=== PATIENT | male | born 1940 | race Caucasian/White ===

== ENCOUNTER 2021-08-31 09:33 | Inpatient (IN) ==
--- NOTE | 2021-08-31 09:48 | Emergency Department Note ---
GI Bleed HPI General Chief complaint: Rectal Bleed Stated complaint: Gi bleed Time Seen by Provider: 08/31/21 09:47 Source: patient and family Mode of arrival: wheelchair Limitations: altered mental status (Dementia) History of Present Illness HPI Narrative: Narrative: 81-year-old male presents emergency department because of generalized weakness. The patient was hospitalized at [facility] on August 11 for a length of stay at 15+ days. 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 10 his dementia and he is on Namenda and donepezil. #11 is DNR #12 his loose stools the patient recovered but because of his Covid status he had to wait till he was Covid negative before he can go to a care facility he goes to the care facility but now today he is not feeling well. He had blood in his stool that was dark-colored. He presents now for further care. Patient was living at home until 2 to 3 weeks ago when he was admitted to [facility]. His states that he had a CVA at that time. states he has had poor appetite for months. Patient is on blood thinner. Patient is unable to provide any history due to his dementia. Related Data Home Medications Medication Instructions Recorded Confirmed cholecalciferol (vitamin D3) 25 1,000 unit PO DAILY 11/10/15 09/01/21 mcg (1,000 unit) capsule coenzyme Q10 50 mg chewable tablet 300 mg PO DAILY 11/10/15 08/31/21 multivitamin 1 each PO DAILY 11/10/15 08/31/21 ropinirole 0.5 mg tablet 0.5 mg PO BID 11/10/15 08/31/21 blood-glucose meter (FreeStyle #1 each 03/16/19 07/16/21 [place] Lite) lutein 10 mg tablet 10 mg PO QDAY 03/16/19 07/16/21 memantine 5 mg tablet 5 mg PO BID 03/16/19 08/31/21 pen needle, diabetic 32 gauge x #10 each 03/16/19 07/16/21 5/32" (BD Ultra-Fine [place] Pen Needle) potassium chloride 10 mEq 10 meq PO QDAY 06/07/19 08/31/21 tablet,extended release (Klor-Con) donepezil 10 mg tablet 10 mg PO BID 02/08/21 08/31/21 acetaminophen 325 mg tablet 650 mg PO Q4H PRN 08/31/21 08/31/21 levothyroxine 50 mcg capsule 50 mcg PO DAILY 08/31/21 08/31/21 (Tirosint) Previous Rx's Medication Instructions Recorded fluticasone propionate 50 2 spray INTRANASAL QDAY #16 g 10/12/18 mcg/actuation nasal spray,suspension (Flonase Allergy Relief) glimepiride 2 mg tablet 2 mg PO DAILY #90 tab 09/13/19 furosemide 40 mg tablet 40 mg PO QAM #90 tab 11/17/19 clopidogrel 75 mg tablet 75 mg PO DAILY #90 tab 01/20/20 allopurinol 300 mg tablet 150 mg PO QDAY #90 tab 03/13/20 Cpap Machine and supplies #1 ea 05/18/20 bupropion HCl 150 mg tablet,12 hr 150 mg PO DAILY #30 each 06/01/20 sustained-release insulin glargine 100 unit/mL (3 50 unit (0.5 mL) SUB-Q .COMPLEX 06/01/20 mL) subcutaneous pen (Lantus #15 ml Solostar U-100 Insulin) blood sugar diagnostic (FreeStyle #100 each 06/29/20 Lite Strips) 4 wheel walker with seat #1 ea 11/22/20 mirabegron 25 mg tablet,extended 25 mg PO QDAY #90 tab 02/08/21 release 24 hr (Myrbetriq) lidocaine 5 % topical patch 1 patch TOPICAL QDAY PRN #15 ea 03/21/21 sertraline 50 mg tablet 50 mg PO QDAY #90 tab 05/21/21 loperamide 2 mg tablet (Imodium 2 mg PO Q4H PRN #30 tab 07/16/21 A-D) pantoprazole 40 mg granules 40 mg PO BID #60 ea 09/01/21 delayed-release for susp in packet sucralfate 100 mg/mL oral 1 gm PO ACHS #90 ml 09/02/21 suspension Allergies Allergy/AdvReac Type Severity Reaction Status Date / Time hydrocodone [HYDROCODONE] AdvReac Mild Constipatio Verified 08/31/21 09:35 n Review of Systems ROS ROS Narrative: Narrative: Limitations: ROS unobtainable due to patients medical condition (Patient has dementia) PFSH Narrative Patient History Narrative: Narrative: Medical/Surgical/Family History All Active Problems (Updated 09/11/21 @ 14:00 by Bhupinder Persaud MD) Acute gastrointestinal bleeding (Acute) Anemia due to blood loss, acute (Acute) Dementia (Acute) Diarrhea (Acute) Senile dementia (Acute) DM (diabetes mellitus), type 2, uncontrolled, periph vascular complic (Chronic) Parkinson's disease (Chronic) HTN (hypertension), benign (Chronic) Encounter for long-term (current) use of insulin (Chronic) Cough (Chronic) Chest tightness (Chronic) Preventative health care (Chronic) Short-term memory loss (Chronic) Seborrheic keratoses (Chronic) Dizziness (Chronic) Hypothyroidism (Chronic) CAD (coronary artery disease) (Chronic) Dislocation of proximal interphalangeal joint of right ring finger (Chronic) Impingement syndrome of right shoulder (Chronic) Hyperlipidemia (Chronic) Greater trochanteric bursitis of left hip (Chronic) Hip pain, left (Chronic) Osteoarthritis of left knee (Chronic) Gout of left knee (Chronic) Contusion of left hand, initial encounter (Chronic) Fatigue (Chronic) GERD (gastroesophageal reflux disease) (Chronic) Dry eye syndrome of both eyes (Chronic) AMI inferior wall (Chronic) Hypercalcemia (Chronic) Sleep apnea (Chronic) Hyperplasia of prostate (Chronic) 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) Depression (Chronic) Right flank pain (Chronic) Need for prophylactic vaccination/inoculation against viral disease (Chronic) Hernia, ventral (Chronic) Erectile dysfunction (Chronic) 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) Rhinitis, allergic (Chronic) Nephrolithiasis (Chronic) Neurogenic bladder (Chronic) Nocturia (Chronic) Adenomatous polyp of colon (Chronic) Colon cancer (Chronic) Macular degeneration (Chronic) Hx of transurethral resection of prostate (Acute) History of colon resection (Acute ~09/2003) Hx of arthroscopy of left knee (Acute) Hx of right coronary artery stent placement (Acute) Hx of hernia repair (Acute) History of partial colectomy (Acute) History of PTCA (Acute) Hx of tonsillectomy (Acute) Hx of cardiac cath (Acute 09/19/15) Syncope (Acute) Lesion of brain (Acute) Medicare annual wellness visit, subsequent (Acute) Tinea unguium (Acute) Fatigue (Acute) Acute right hip pain (Acute) Gait instability (Acute) Falls frequently (Acute) Senile dementia (Acute) Toe pain, left (Acute) Traumatic injury of rib (Acute) Urinary urgency (Acute) Urge incontinence (Acute) Hematuria (Acute) Left renal stone (Acute) Medical History Adenomatous polyp of colon AMI inferior wall CAD (coronary artery disease) Colon cancer Contusion of left hand, initial encounter Depression Dislocation of proximal interphalangeal joint of right ring finger Dizziness DM (diabetes mellitus), type 2, uncontrolled, periph vascular complic Dry eye syndrome of both eyes Encounter for long-term (current) use of insulin Erectile dysfunction Fatigue GERD (gastroesophageal reflux disease) Gout of left knee Greater trochanteric bursitis of left hip Hernia, ventral Hip pain, left HTN (hypertension), benign Hypercalcemia Hyperlipidemia Hyperplasia of prostate UNS W/UR OBST & other LUTS Hypertrophy of prostate with urinary obstruction Hypothyroidism Impingement syndrome of right shoulder Macular degeneration Need for prophylactic vaccination/inoculation against viral disease Neoplasm of uncertain behavior of skin Nephrolithiasis Neurogenic bladder Nocturia Osteoarthritis of left knee Parkinson's disease Preventative health care Rhinitis, allergic Right flank pain Seborrheic keratoses Short-term memory loss Sleep apnea Traumatic injury of rib Tubulovillous adenoma of colon Surgical History History of colon resection (~09/2003) History of partial colectomy History of PTCA Hx of arthroscopy of left knee Hx of cardiac cath (09/19/15) Hx of hernia repair Hx of right coronary artery stent placement Hx of tonsillectomy Hx of transurethral resection of prostate Family History Brother Prostate cancer Social History Smoking Status: Former smoker Alcohol Intake Frequency: does not drink Substance Use: does not use Exam Narrative Narrative: Narrative: General Limitations: altered mental status (Dementia) General appearance: Present alert and in no apparent distress Head Head: Present atraumatic and normocephalic Eye Eye: Absent scleral icterus ENT ENT: Present mucous membranes moist Neck Neck: Present trachea midline Respiratory Respiratory: Present normal lung sounds bilaterally; Absent respiratory distress Cardiovascular Cardiovascular: Present regular rate, normal rhythm and systolic murmur (3/6) Adbominal Abdominal: Present soft; Absent tenderness Rectal Rectal: Present heme (+) stool Extremities Extremities: Present normal inspection Neurological Neurological: Present alert Psychiatric Psychiatric: Present flat affect Skin Skin: Present warm (WNL) and dry Course Vital Signs Vital signs: Vital Signs Temperature 96.5 F L 08/31/21 09:35 Pulse Rate 67 08/31/21 09:35 Respiratory Rate 16 08/31/21 09:35 Blood Pressure 116/55 08/31/21 09:35 Pulse Oximetry (%) 95 08/31/21 09:35 Temperature 98.7 F 09/03/21 13:48 Pulse Rate 76 09/03/21 13:48 Respiratory Rate 16 09/03/21 13:48 Blood Pressure 132/65 09/03/21 13:48 Pulse Oximetry (%) 94 09/03/21 13:48 MDM MDM Narrative Medical decision making narrative: Narrative: Elderly male presents emerge department with dark-colored stool suspected to be blood. Patient with history of prior CVA, Covid positive prior, dementia. Patient on aspirin and Plavix. Differential diagnosis includes upper GI bleed, lower GI bleed, peptic ulcer disease, hemorrhoidal bleed, other Laboratory tests revealed white count of 21,000 with 7.4 hemoglobin and to 96 pl atelet. 5 days ago his hemoglobin was 10.8. In December of last year it was 13.9. Electrolytes were unremarkable. BUN was elevated at 59 with a creatinine of 1.1. This is compatible with a GI bleed. Glucose was elevated at 308 compatible with his diabetes. Stool was guaiac positive. Patient hemo dynamically was stable blood pressure 116/58 with a pulse of 66 and a pulse ox of 95% on room air. Maribel Covid test negative. Patient clearly has a gastrointestinal bleed with a significant decrease in his hemoglobin over the past 5 days. Case was discussed with our hospitalist who agreed to admit the patient and provide further care. Lab Data Result diagrams: 09/03/21 09:54 09/02/21 06:37 Labs: Lab Results 08/31/21 08/31/21 08/31/21 Range/Units 09:51 09:51 12:31 WBC 21.2 H (4.5-11.0) K/mcL RBC 2.46 L (4.63-6.08) M/mcL Hgb 7.4 L (13.7-17.5) g/dL Hct 24.1 L (40.1-51.0) % MCV 98.0 (80.0-100.0) fL MCH 30.1 (26.0-34.0) pg MCHC 30.7 L (31.0-36.0) g/dL RDW 17.0 H (11.5-14.5) % Plt Count 296 (140-440) K/mcL MPV 11.0 H (7.4-10.4) fL Neut % (Auto) 83.7 H (38.0-78.0) % Lymph % (Auto) 10.3 L (15.5-49.0) % [place] % (Auto) 5.6 (1.0-12.0) % Eos % (Auto) 0.1 (0.0-7.0) % Baso % (Auto) 0.3 (0.0-2.0) % Lymph # (Auto) 2.19 (1.50-4.80) K/mcL [place] # (Auto) 1.19 H (0.10-0.90) K/mcL Eos # (Auto) 0.02 (0.00-0.70) K/mcL Baso # (Auto) 0.07 (0.00-0.30) K/mcL Absolute Neutrophils 17.71 H (1.80-8.00) K/mcL VBG Lactic Acid 2.3 H (0.5-2.0) mmol/L Sodium 143 (133-145) mmol/L Potassium 4.3 (3.3-5.1) mmol/L Chloride 108 (96-108) mmol/L Carbon Dioxide 21 L (22-30) mmol/L Anion Gap 14.0 (8.0-16.0) BUN 59 H (8-23) mg/dL Creatinine 1.1 (0.7-1.2) mg/dL GFR Calculation 62 Glucose 308 H (70-105) mg/dL Calcium 8.4 L (8.6-10.4) mg/dL Total Bilirubin 0.4 (0.1-1.0) mg/dL AST 17 (<40) U/L ALT 29 (<40) U/L Alkaline Phosphatase 65 (39-117) U/L Total Protein 5.6 L (5.9-8.4) gm/dL Albumin 2.9 L (3.2-5.2) gm/dL Globulin 2.7 (2.2-3.7) gm/dL Albumin/Globulin Ratio 1.1 (1.0-2.3) ED POC Tests ED POC Tests: [place] - SARS Antigen Negative Discharge Plan Patient/Caregiver Discharge Instructions Pt seen by [employer]ESSIONAL [employer]/PA only: No Clinical Impression: Acute gastrointestinal bleeding, Anemia due to blood loss, acute, Dementia Activity: increase activity as tolerated Patient Disposition: Xfer As Inpt ([facility]) Condition: Fair Discharge Date/Time: 08/31/21 14:59
[2021-08-31] MEDS ORDERED: 0.9 % SODIUM CHLORIDE 1,000 ML IV ONE (10:40)
[2021-08-31 10:56] LABS: Basophils # (Auto) 0.07 K/mcL (0.00-0.30); Basophils % (Auto) 0.3 % (0.0-2.0); Eosinophils # (Auto) 0.02 K/mcL (0.00-0.70); Eosinophils % (Auto) 0.1 % (0.0-7.0); Hematocrit 24.1 % (40.1-51.0); Hemoglobin 7.4 g/dL (13.7-17.5); Lymphocytes # (Auto) 2.19 K/mcL (1.50-4.80); Lymphocytes % (Auto) 10.3 % (15.5-49.0); Mean Corpuscular HGB Conc 30.7 g/dL (31.0-36.0); Monocytes # (Auto) 1.19 K/mcL (0.10-0.90); Monocytes % (Auto) 5.6 % (1.0-12.0); Neutrophils % (Auto) 83.7 % (38.0-78.0); Platelet Count 296 K/mcL (140-440); RBC 2.46 M/mcL (4.63-6.08); WBC 21.2 K/mcL (4.5-11.0)
[2021-08-31 11:26] LABS: ALT/SGPT 29 U/L (<40); AST/SGOT 17 U/L (<40); Albumin 2.9 gm/dL (3.2-5.2); Albumin/Globulin Ratio 1.1 (1.0-2.3); Alkaline Phosphatase 65 U/L (39-117); Bilirubin,Total 0.4 mg/dL (0.1-1.0); Blood Urea Nitrogen 59 mg/dL (8-23); Calcium 8.4 mg/dL (8.6-10.4); Carbon Dioxide 21 mmol/L (22-30); Chloride 108 mmol/L (96-108); Globulin 2.7 gm/dL (2.2-3.7); Glomerular Filtration Rate 62; Glucose 308 mg/dL (70-105)
[2021-08-31] MEDS ORDERED: PANTOPRAZOLE 40 MG VIAL IV ONE (13:11)
--- NOTE | 2021-08-31 13:11 | XRay Report ---
CLINICAL INFORMATION: Elevated white blood cell count COMPARISON: 03/21/2019 TECHNIQUE: Portable FINDINGS: Mild cardiomegaly is unchanged. Mediastinum and pulmonary vessels are normal. Moderate patchy infiltrate is developed in the left mid and lower lung. Modest volume loss noted featuring leftward cardiomediastinal silhouette shifting and slightly retracted the diaphragm. This may indicate a component of atelectasis. Small infiltrate is also developed in the right lower lung. IMPRESSION: Moderate patchy infiltrate involving the left mid and lower lung with small infiltrate developing in the right lower lung. Interpreted and Authenticated by: Luis M Lucas 08/31/21
[2021-08-31] MEDS ORDERED: FUROSEMIDE 20 MG/2 ML VIAL IV ONE (13:30)
[2021-08-31] MEDS ORDERED: ACETAMINOPHEN 325 MG TABLET PO PRN (13:33)
[2021-08-31] MEDS ORDERED: METOPROLOL TARTRATE 5 MG/5 ML VIAL IV PRN (13:33)
[2021-08-31] MEDS ORDERED: ONDANSETRON 4 MG/2 ML VIAL IV PRN (13:33)
[2021-08-31] MEDS ORDERED: IPRATROPIUM/ALBUTEROL 3 ML AMPUL.NEB NEB PRN (13:33)
[2021-08-31] MEDS ORDERED: POTASSIUM CHLORIDE 40 MEQ in DEXTROSE 5% IN WATER 500 ML IV PRN (13:33)
[2021-08-31] MEDS ORDERED: POLYETHYLENE GLYCOL 3350 17 GM PACKET PO PRN (13:33)
[2021-08-31] MEDS ORDERED: MAGNESIUM SULFATE 2 GM/50 ML BAG IV PRN (13:33)
[2021-08-31] MEDS ORDERED: POTASSIUM CHLORIDE 20 MEQ TABLET PO PRN ×2 (13:33)
--- NOTE | 2021-08-31 13:33 | Internal Med History&Physical ---
HPI History of Present Illness Patient information: Note initiated : 08/31/21 at 1:23 pm Service Date, if different from initiated Date: [] Patient: Abdoulaye Meyers a 81 y/o M admitted on for Gi bleed. Chief Complaint: [] History of present illness: Mr. Meyers is a 81 year old M [facility] guaiac positive and pale. Patient was for left parietal stroke on 08/11. He was also found to have pneumonia and was treated for both bacterial and Covid pneumonia. He was finally discharged on the due to isolation precautions from [facility] to shelter facility. And then today brought in because of weakness and his thought he was Pale and bleeding. Had another dark tarry stool in the ED. Hemoglobin 7.5 was 10.7 5 days ago. Will order blood transfusion and given the recent stroke will give 2 units to help with perfusion. Patient was on aspirin when he was admitted to [place] and Plavix was added given the stroke. Review of Systems: Pertinent positives as above. Denies /fever/chills/nausea/vomiting/chest or abdominal pain/cough/dyspnea. Remaining 10 point review of system reviewed negative PFSH PFSH All Active Problems Diarrhea (Acute) Senile dementia (Acute) DM (diabetes mellitus), type 2, uncontrolled, periph vascular complic (Chronic) Parkinson's disease (Chronic) HTN (hypertension), benign (Chronic) Encounter for long-term (current) use of insulin (Chronic) Cough (Chronic) Chest tightness (Chronic) Preventative health care (Chronic) Short-term memory loss (Chronic) Seborrheic keratoses (Chronic) Dizziness (Chronic) Hypothyroidism (Chronic) CAD (coronary artery disease) (Chronic) Dislocation of proximal interphalangeal joint of right ring finger (Chronic) Impingement syndrome of right shoulder (Chronic) Hyperlipidemia (Chronic) Greater trochanteric bursitis of left hip (Chronic) Hip pain, left (Chronic) Osteoarthritis of left knee (Chronic) Gout of left knee (Chronic) Contusion of left hand, initial encounter (Chronic) Fatigue (Chronic) GERD (gastroesophageal reflux disease) (Chronic) Dry eye syndrome of both eyes (Chronic) AMI inferior wall (Chronic) Hypercalcemia (Chronic) Sleep apnea (Chronic) Hyperplasia of prostate (Chronic) 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) Depression (Chronic) Right flank pain (Chronic) Need for prophylactic vaccination/inoculation against viral disease (Chronic) Hernia, ventral (Chronic) Erectile dysfunction (Chronic) 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) Rhinitis, allergic (Chronic) Nephrolithiasis (Chronic) Neurogenic bladder (Chronic) Nocturia (Chronic) Adenomatous polyp of colon (Chronic) Colon cancer (Chronic) Macular degeneration (Chronic) Hx of transurethral resection of prostate (Acute) History of colon resection (Acute ~09/2003) Hx of arthroscopy of left knee (Acute) Hx of right coronary artery stent placement (Acute) Hx of hernia repair (Acute) History of partial colectomy (Acute) History of PTCA (Acute) Hx of tonsillectomy (Acute) Hx of cardiac cath (Acute 09/19/15) Syncope (Acute) Lesion of brain (Acute) Medicare annual wellness visit, subsequent (Acute) Tinea unguium (Acute) Fatigue (Acute) Acute right hip pain (Acute) Gait instability (Acute) Falls frequently (Acute) Senile dementia (Acute) Toe pain, left (Acute) Traumatic injury of rib (Acute) Urinary urgency (Acute) Urge incontinence (Acute) Hematuria (Acute) Left renal stone (Acute) Medical History Adenomatous polyp of colon AMI inferior wall CAD (coronary artery disease) Colon cancer Contusion of left hand, initial encounter Depression Dislocation of proximal interphalangeal joint of right ring finger Dizziness DM (diabetes mellitus), type 2, uncontrolled, periph vascular complic Dry eye syndrome of both eyes Encounter for long-term (current) use of insulin Erectile dysfunction Fatigue GERD (gastroesophageal reflux disease) Gout of left knee Greater trochanteric bursitis of left hip Hernia, ventral Hip pain, left HTN (hypertension), benign Hypercalcemia Hyperlipidemia Hyperplasia of prostate UNS W/UR OBST & other LUTS Hypertrophy of prostate with urinary obstruction Hypothyroidism Impingement syndrome of right shoulder Macular degeneration Need for prophylactic vaccination/inoculation against viral disease Neoplasm of uncertain behavior of skin Nephrolithiasis Neurogenic bladder Nocturia Osteoarthritis of left knee Parkinson's disease Preventative health care Rhinitis, allergic Right flank pain Seborrheic keratoses Short-term memory loss Sleep apnea Traumatic injury of rib Tubulovillous adenoma of colon Surgical History History of colon resection (~09/2003) History of partial colectomy History of PTCA Hx of arthroscopy of left knee Hx of cardiac cath (09/19/15) Hx of hernia repair Hx of right coronary artery stent placement Hx of tonsillectomy Hx of transurethral resection of prostate Family History Brother Prostate cancer Social History household members: spouse marital status: occupational status: retired smoking status: Never smoker alcohol intake frequency: does not drink substance use type: does not use MEDS/ALLERGIES Home Medications and Allergies Home Medications Medication Instructions Recorded Confirmed Type aspirin 81 mg chewable tablet 81 mg PO DAILY 11/10/15 07/16/21 History cholecalciferol (vitamin D3) 25 1,000 unit PO DAILY 11/10/15 07/16/21 History mcg (1,000 unit) capsule coenzyme Q10 50 mg chewable tablet 50 mg PO DAILY 11/10/15 07/16/21 History multivitamin 1 each PO DAILY 11/10/15 07/16/21 History pantoprazole 40 mg granules 40 mg PT DAILY 11/10/15 07/16/21 History delayed-release for susp in packet ropinirole 0.5 mg tablet 0.5 mg PO DAILY 11/10/15 07/16/21 History fluticasone propionate 50 2 spray INTRANASAL QDAY #16 g 10/12/18 07/16/21 Rx mcg/actuation nasal spray,suspension (Flonase Allergy Relief) blood-glucose meter (FreeStyle #1 each 03/16/19 07/16/21 History [place] Lite) lutein 10 mg tablet 10 mg PO QDAY 03/16/19 07/16/21 History memantine 5 mg tablet 5 mg PO BID 03/16/19 07/16/21 History pen needle, diabetic 32 gauge x #10 each 03/16/19 07/16/21 History 5/32" (BD Ultra-Fine Glenny Pen Needle) potassium chloride 10 mEq 10 meq PO QDAY 06/07/19 07/16/21 History tablet,extended release (Klor-Con) glimepiride 2 mg tablet 2 mg PO DAILY #90 tab 09/13/19 07/16/21 Rx furosemide 40 mg tablet 40 mg PO QAM #90 tab 11/17/19 07/16/21 Rx clopidogrel 75 mg tablet 75 mg PO DAILY #90 tab 01/20/20 07/16/21 Rx allopurinol 300 mg tablet 150 mg PO QDAY #90 tab 03/13/20 07/16/21 Rx Cpap Machine and supplies #1 ea 05/18/20 07/16/21 Rx bupropion HCl 150 mg tablet,12 hr 150 mg PO DAILY #30 each 06/01/20 07/16/21 Rx sustained-release insulin glargine 100 unit/mL (3 50 unit (0.5 mL) SUB-Q .COMPLEX 06/01/20 07/16/21 Rx mL) subcutaneous pen (Lantus #15 ml Solostar U-100 Insulin) blood sugar diagnostic (FreeStyle #100 each 06/29/20 07/16/21 Rx Lite Strips) metoprolol tartrate 25 mg tablet 25 mg PO DAILY #90 tab 10/10/20 07/16/21 Rx 4 wheel walker with seat #1 ea 11/22/20 07/16/21 Rx levothyroxine 50 mcg capsule See Rx Instructions .ROUTE 12/12/20 07/16/21 Rx (Tirosint) .COMPLEX #90 cap donepezil 10 mg tablet 10 mg PO QDAY 02/08/21 07/16/21 History mirabegron 25 mg tablet,extended 25 mg PO QDAY #90 tab 02/08/21 07/16/21 Rx release 24 hr (Myrbetriq) lidocaine 5 % topical patch 1 patch TOPICAL QDAY PRN #15 ea 03/21/21 07/16/21 Rx sertraline 50 mg tablet 50 mg PO QDAY #90 tab 05/21/21 07/16/21 Rx loperamide 2 mg tablet (Imodium 2 mg PO Q4H PRN #30 tab 07/16/21 07/16/21 Rx A-D) Allergies Allergy/AdvReac Type Severity Reaction Status Date / Time hydrocodone [HYDROCODONE] AdvReac Mild Constipatio Verified 08/31/21 09:35 n EXAM Constitutional Vitals: Temp Pulse Resp BP Pulse Ox 96.5 F L 58 L 16 114/72 100 08/31/21 09:35 08/31/21 12:35 08/31/21 09:35 08/31/21 11:40 08/31/21 12:35 Exam: General: Alert, Awake, No acute Distress Eyes/N/T: EOMI, PERRL, Head/Neck: neck supple, normocephalic atraumatic CV: RRR, 3/6 SM, normal s1/s2 Pulm: Clear b/l, no wheezing/rhonchi/rales Abd: soft, nontender, +BS x4 Ext: no clubbing/cyanosis/edema Neuro: Alert, no focal deficits, moves all extremities, CN 2-12 grossly intact, symmetrical strength b/l upper/lower, sensations intact b/l upper/lower Skin: warm/dry, pale DATA Data Completed and Pending Labs: Labs from last 24 hours 08/31/21 08/31/21 08/31/21 12:31 09:51 09:51 WBC 21.2 H RBC 2.46 L Hgb 7.4 L Hct 24.1 L MCV 98.0 MCH 30.1 MCHC 30.7 L RDW 17.0 H Plt Count 296 MPV 11.0 H Neut % (Auto) 83.7 H Lymph % (Auto) 10.3 L [place] % (Auto) 5.6 Eos % (Auto) 0.1 Baso % (Auto) 0.3 Lymph # (Auto) 2.19 [place] # (Auto) 1.19 H Eos # (Auto) 0.02 Baso # (Auto) 0.07 Absolute Neutrophils 17.71 H VBG Lactic Acid Pending Sodium 143 Potassium 4.3 Chloride 108 Carbon Dioxide 21 L Anion Gap 14.0 BUN 59 H Creatinine 1.1 GFR Calculation 62 Glucose 308 H Calcium 8.4 L Total Bilirubin 0.4 AST 17 ALT 29 Alkaline Phosphatase 65 Total Protein 5.6 L Albumin 2.9 L Globulin 2.7 Albumin/Globulin Ratio 1.1 A/P Narrative A/P Narrative: A: *GI bleed, appears to be upper: *Acute blood loss anemia: *Recent left parietal CVA on 08/11: was already on ASA, Plavix started at [facility] *Recent pneumonia/covid: *Dementia: *Depression/anxiety: *DM w/neuropathy: *CAD w/stent distant past: *Hypothyroidism: *GERD: P: -Dr. Queen for endoscopy -Blood transfusion, monitor H&H -Protonix drip -asa/plavix held, will possibly switch to monotherapy with plavix when appropriate to restart antiplatelet -Continue remaing home medications -IS - -PT/OT -Home medication reconciliation -ppx: SCD Time Spent With Patient Time: Total time spent is greater than 50% in coordination of care (as documented) at patient's floor/unit and/or counseling patient:
[2021-08-31] MEDS: PANTOPRAZOLE 80 MG in 0.9 % SODIUM CHLORIDE 100 ML IV SCH (13:41)
[2021-08-31] MEDS ORDERED: KETAMINE 50 MG/ML ML IV PRN (16:14)
[2021-08-31] MEDS ORDERED: MIDAZOLAM 2 MG/2 ML VIAL IV SCH (16:15)
[2021-08-31] MEDS ORDERED: PROPOFOL 200 MG/20 ML VIAL IV SCH (16:15)
[2021-08-31] MEDS ORDERED: MIDAZOLAM 2 MG/2 ML VIAL ONE (16:20)
[2021-08-31] MEDS ORDERED: PROPOFOL 200 MG/20 ML VIAL IV ONE (16:20)
[2021-08-31] MEDS: 0.9 % SODIUM CHLORIDE 10 ML SYRINGE IV SCH (16:36)
[2021-08-31] MEDS: 0.9 % SODIUM CHLORIDE 250 ML IV SCH ×2 (16:37→22:30)
[2021-09-01] MEDS: PANTOPRAZOLE 80 MG in 0.9 % SODIUM CHLORIDE 100 ML IV SCH ×2 (01:37→11:32)
[2021-09-01] MEDS: 0.9 % SODIUM CHLORIDE 10 ML SYRINGE IV SCH ×4 (01:38→20:07)
[2021-09-01 06:54] LABS: Basophils # (Auto) 0.03 K/mcL (0.00-0.30); Basophils % (Auto) 0.2 % (0.0-2.0); Eosinophils # (Auto) 0.15 K/mcL (0.00-0.70); Eosinophils % (Auto) 1.2 % (0.0-7.0); Hematocrit 27.2 % (40.1-51.0); Hemoglobin 8.5 g/dL (13.7-17.5); Lymphocytes # (Auto) 1.77 K/mcL (1.50-4.80); Lymphocytes % (Auto) 14.6 % (15.5-49.0); Mean Cell Volume 95.8 fL (80.0-100.0); Mean Corpuscular HGB Conc 31.3 g/dL (31.0-36.0); Mean Platelet Volume 10.4 fL (7.4-10.4); Monocytes # (Auto) 0.74 K/mcL (0.10-0.90); Monocytes % (Auto) 6.1 % (1.0-12.0); Neutrophils % (Auto) 77.9 % (38.0-78.0); Platelet Count 146 K/mcL (140-440); RBC 2.84 M/mcL (4.63-6.08); Red Cell Distribution Width 16.5 % (11.5-14.5); WBC 12.1 K/mcL (4.5-11.0)
[2021-09-01 07:05] LABS: ALT/SGPT 19 U/L (<40); AST/SGOT 12 U/L (<40); Albumin 2.4 gm/dL (3.2-5.2); Alkaline Phosphatase 57 U/L (39-117); Bilirubin,Direct < 0.2 mg/dL (0-0.3); Bilirubin,Total 0.5 mg/dL (0.1-1.0); Blood Urea Nitrogen 43 mg/dL (8-23); Calcium 7.7 mg/dL (8.6-10.4); Carbon Dioxide 21 mmol/L (22-30); Chloride 118 mmol/L (96-108); Globulin 2.4 gm/dL (2.2-3.7); Glomerular Filtration Rate 88; Glucose 168 mg/dL (70-105); Lactate Dehydrogenase 215 U/L (135-225); Phosphorous 2.3 mg/dL (2.5-4.5); Triglycerides 154 mg/dL (<150); Uric Acid 3.4 mg/dL (2.5-8.0)
[2021-09-01] MEDS ORDERED: DEXTROSE 31 GM ORAL.SUSP PO PRN (07:40)
[2021-09-01] MEDS ORDERED: DEXTROSE 50% 50 ML VIAL IV PRN (07:40)
--- NOTE | 2021-09-01 07:41 | Internal Med Progress Note ---
SUBJECTIVE Subjective Patient information: Note initiated : 09/01/21 at 7:34 am Service Date, if different from initiated Date: [] Patient: Abdoulaye Meyers a 81 y/o M admitted on 08/31/21 for Gi bleed. Chief Complaint: [] Interval history: History of present illness: Mr. Meyers is a 81 year old M Patient presents the ED from [facility] facility for black tarry stools guaiac positive and pale. Patient was for left parietal stroke on 08/11. He was also found to have pneumonia and was treated for both bacterial and Covid pneumonia. He was finally discharged on the due to isolation precautions from [facility] to halfway facility. And then today brought in because of weakness and his thought he was Pale and bleeding. Had another dark tarry stool in the ED. Hemoglobin 7.5 was 10.7 5 days ago. Will order blood transfusion and given the recent stroke will give 2 units to help with perfusion. Patient was on aspirin when he was admitted to [place] and Plavix was added given the stroke. Discussed case with Dr. Queen after EGD findings of multiple ulcers. We will send out fasting gastrin for Chuckie Juárez syndrome work-up. Wait 2-weeks for antiplatelet restart. Will only restart plavix. 09/01 No reported bleeding overnight. No new complaints. Electrolyte imbalance on chemistry. Hemoglobin stable but not as high as would expect after 2 units of blood. Review of Systems: rehan headache/fever/chills/nausea/vomiting/chest or abdominal pain/cough/dyspnea/diarrhea. Otherwise see above. Constitutional Vitals: Vital Signs Temp Pulse Resp BP Pulse Ox 97.4 F 65 20 123/60 95 09/01/21 07:21 09/01/21 07:21 09/01/21 07:21 09/01/21 07:21 09/01/21 07:21 Period Temp Pulse Resp BP Sys/Kerr Pulse Ox Last 24 Hr 96.5 F-98.2 F 52-67 16-20 71-137/38-72 91-100 Intake and Output 08/31/21 09/01/21 09/01/21 21:59 05:59 13:59 Intake Total 5 831 Output Total 150 400 Balance -145 431 Weight 79.379 kg Intake & Output: Intake & Output 08/31/21 09/01/21 09/01/21 21:59 05:59 13:59 Intake Total 5 831 Output Total 150 400 Balance -145 431 Weight 79.379 kg Intake: IV 5 81 Protonix 80 mg In Sodium 5 81 Chloride 0.9% 100 ml @ 8 MG/HR 10 mls/hr IV Q10H EMELINA Rx#: [id number] Oral 0 Blood Product 750 Output: Urine Catheter Amount 150 400 Other: Urine Appearance Clear Clear [place] Clear Urine Color Dark Yellow Dark Yellow [place] Bright Yellow Urine Odor Normal # Unmeasured Emesis 1 Exam: General: Alert, Awake, No acute Distress Eyes/N/T: EOMI, Head/Neck: neck supple, CV: RRR, 3/6 SM, Pulm: Clear b/l, no wheezing/rhonchi/rales Abd: soft, nontender, +BS x4 Ext: no clubbing/cyanosis/edema Neuro: Alert, no focal deficits, moves all extremities, Skin: warm/dry, pale OBJ DATA Labs CBC & Chem 7: 09/01/21 05:39 09/01/21 05:39 Labs: Abnormal Lab Results 09/01/21 09/01/21 08/31/21 05:39 05:39 12:31 WBC 12.1 H RBC 2.84 L Hgb 8.5 L Hct 27.2 L MCHC RDW 16.5 H MPV Neut % (Auto) Lymph % (Auto) 14.6 L [place] # (Auto) Absolute Neutrophils 9.44 H VBG Lactic Acid 2.3 H Sodium 146 H Chloride 118 H Carbon Dioxide 21 L Anion Gap 7.0 L BUN 43 H Glucose 168 H Calcium 7.7 L Phosphorus 2.3 L Total Protein 4.8 L Albumin 2.4 L Triglycerides 154 H 08/31/21 08/31/21 09:51 09:51 WBC 21.2 H RBC 2.46 L Hgb 7.4 L Hct 24.1 L MCHC 30.7 L RDW 17.0 H MPV 11.0 H Neut % (Auto) 83.7 H Lymph % (Auto) 10.3 L [place] # (Auto) 1.19 H Absolute Neutrophils 17.71 H VBG Lactic Acid Sodium Chloride Carbon Dioxide 21 L Anion Gap BUN 59 H Glucose 308 H Calcium 8.4 L Phosphorus Total Protein 5.6 L Albumin 2.9 L Triglycerides Meds: Medications Acetaminophen (Acetaminophen 325 Mg Tablet) 650 mg PO Q6HP PRN; Protocol PRN Reason: Per Pain Protocol/Fever > 101 Albuterol/Ipratropium (Ipratropium/Albuterol 3 Ml Ampul.Neb) 3 ml NEB Q4HP PRN PRN Reason: Shortness Of Breath Pantoprazole Sodium 80 mg/ (Sodium Chloride) 100 mls @ 10 mls/hr IV Q10H COUNTS INCLUDE 234 BEDS AT THE [facility] Last Admin: 09/01/21 01:37 Dose: 8 mg/hr, 10 mls/hr Documented by: Potassium Chloride 40 meq/ (Dextrose) 520 mls @ 130 mls/hr IV UD PRN PRN Reason: Potassium < 3 Magnesium Sulfate (Magnesium Sulfate) 2 gm in 50 mls @ 50 mls/hr IV UD PRN PRN Reason: Magnesium </= 1.6 Metoprolol Tartrate (Metoprolol Tartrate 5 Mg/5 Ml Vial) 5 mg IV Q2HP PRN PRN Reason: Tachyarrhythmias HR>110 Ondansetron HCl (Ondansetron 4 Mg/2 Ml Vial) 4 mg IV Q4HP PRN PRN Reason: Nausea And Vomiting Polyethylene Glycol (Polyethylene Glycol 3350 17 Gm Packet) 17 gm PO DAILYP PRN PRN Reason: Constipation Potassium Chloride (Potassium Chloride 20 Meq Tablet) 40 meq PO UD PRN PRN Reason: Potssium is 3-3.5 Potassium Chloride (Potassium Chloride 20 Meq Tablet) 40 meq PO UD PRN PRN Reason: Potassium < 3 Sodium Chloride (0.9 % Sodium Chloride 10 Ml Syringe) 10 ml IV Q8 COUNTS INCLUDE 234 BEDS AT THE [facility] Last Admin: 09/01/21 04:25 Dose: Not Given Documented by: A/P Narrative A/P Narrative: A: *GI bleed, appears to be upper: 2/2 severe PUD *Acute blood loss anemia: -s/p 2PRBC(08/31) *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 Queen s/p endoscopy -Follow-up electrolytes -Blood transfusion prn, monitor H&H -Protonix drip for several days then bid -clear liquid diet, advance as tolerated -asa/plavix held, will only restart Plavix and wait 2-weeks per Dr. Suárez -Continue other home medications -IS -PT/OT -ppx: SCD Time Spent With Patient Time: Total time spent is greater than 50% in coordination of care (as documented) at patient's floor/unit and/or counseling patient: QUALITY VTE Deep Vein Thrombosis/Pulmonary Embolism Present on Admission: No
[2021-09-01] MEDS ORDERED: DEXTROSE 5% IN WATER 500 ML IV SCH (07:45)
[2021-09-01] MEDS ORDERED: LOPERAMIDE 2 MG CAPSULE PO PRN (07:56)
[2021-09-01] MEDS ORDERED: METOPROLOL SUCCINATE 25 MG TAB.XL.24H PO SCH (09:00)
[2021-09-01] MEDS: LEVOTHYROXINE 50 MCG TABLET PO SCH (09:47)
[2021-09-01] MEDS: SERTRALINE 50 MG TABLET PO SCH (09:54)
[2021-09-01] MEDS: DONEPEZIL 10 MG TABLET PO SCH ×2 (09:54→20:06)
[2021-09-01] MEDS: rOPINIRole 0.25 MG TABLET PO SCH ×2 (09:54→20:06)
--- NOTE | 2021-09-01 10:04 | Discharge Summary ---
Discharge Provider Provider Patient information: Note initiated : 09/01/21 at 10:03 am Service Date, if different from initiated Date: [] Patient: Abdoulaye Meyers 81 y/o M admitted on 08/31/21 for Gi bleed. Chief Complaint: [] Date of admission: 08/31/21 14:58 Discharge date: 09/02/21 Primary care physician: Antonio Martin MD Consults: 08/31/21 Consult to Physician [CONS] Stat Comment: Consulting Provider: Germain Sanchez Reason For Exam: Physician to Consult Consult to Physician [CONS] Stat Comment: Consulting Provider: Vivek Suárez Reason For Exam: Physician to Consult Discharge Meds Discharge Medications Home Medications cholecalciferol (vitamin D3) 25 mcg (1,000 unit) capsule 1,000 unit PO DAILY 11/10/15 [History Confirmed 09/01/21 Last Taken 04/05/19] coenzyme Q10 50 mg chewable tablet 300 mg PO DAILY 11/10/15 [History Confirmed 08/31/21 Last Taken 04/05/19] multivitamin 1 each PO DAILY 11/10/15 [History Confirmed 08/31/21 Last Taken 04/05/19] ropinirole 0.5 mg tablet 0.5 mg PO BID 11/10/15 [History Confirmed 08/31/21 Last Taken 04/05/19] fluticasone propionate 50 mcg/actuation nasal spray,suspension (Flonase Allergy Relief) 2 spray INTRANASAL QDAY #16 g 10/12/18 [Rx Confirmed 07/16/21 Last Taken 04/05/19] blood-glucose meter (FreeStyle [place] Lite) #1 each 03/16/19 [History Confirmed 07/16/21 Last Taken 04/05/19] lutein 10 mg tablet 10 mg PO QDAY 03/16/19 [History Confirmed 07/16/21 Last Taken 04/05/19] memantine 5 mg tablet 5 mg PO BID 03/16/19 [History Confirmed 08/31/21 Last Taken 04/05/19] pen needle, diabetic 32 gauge x 5/32" (BD Ultra-Fine Glenny Pen Needle) #10 each 03/16/19 [History Confirmed 07/16/21 Last Taken 04/05/19] potassium chloride 10 mEq tablet,extended release (Klor-Con) 10 meq PO QDAY 06/07/19 [History Confirmed 08/31/21 Last Taken Unknown] glimepiride 2 mg tablet 2 mg PO DAILY #90 tab 09/13/19 [Rx Confirmed 07/16/21 Last Taken Unknown] furosemide 40 mg tablet 40 mg PO QAM #90 tab 11/17/19 [Rx Confirmed 07/16/21 Last Taken Unknown] clopidogrel 75 mg tablet 75 mg PO DAILY #90 tab 01/20/20 [Rx Confirmed 08/31/21 Last Taken Unknown] allopurinol 300 mg tablet 150 mg PO QDAY #90 tab 03/13/20 [Rx Confirmed 08/31/21 Last Taken Unknown] Cpap Machine and supplies #1 ea 05/18/20 [Rx Confirmed 07/16/21 Last Taken Unknown] bupropion HCl 150 mg tablet,12 hr sustained-release 150 mg PO DAILY #30 each 06/01/20 [Rx Confirmed 09/01/21 Last Taken Unknown] insulin glargine 100 unit/mL (3 mL) subcutaneous pen (Lantus Solostar U-100 Insulin) 50 unit (0.5 mL) SUB-Q .COMPLEX #15 ml 06/01/20 [Rx Confirmed 07/16/21 Last Taken Unknown] blood sugar diagnostic (FreeStyle Lite Strips) #100 each 06/29/20 [Rx Confirmed 07/16/21 Last Taken Unknown] metoprolol tartrate 25 mg tablet 25 mg PO DAILY #90 tab 10/10/20 [Rx Confirmed 08/31/21 Last Taken Unknown] 4 wheel walker with seat #1 ea 11/22/20 [Rx Confirmed 07/16/21 Last Taken Unknown] donepezil 10 mg tablet 10 mg PO BID 02/08/21 [History Confirmed 08/31/21 Last Taken Unknown] mirabegron 25 mg tablet,extended release 24 hr (Myrbetriq) 25 mg PO QDAY #90 tab 02/08/21 [Rx Confirmed 07/16/21 Last Taken Unknown] lidocaine 5 % topical patch 1 patch TOPICAL QDAY PRN #15 ea 03/21/21 [Rx Confirmed 07/16/21 Last Taken Unknown] sertraline 50 mg tablet 50 mg PO QDAY #90 tab 05/21/21 [Rx Confirmed 08/31/21 Last Taken Unknown] loperamide 2 mg tablet (Imodium A-D) 2 mg PO Q4H PRN #30 tab 07/16/21 [Rx Confirmed 08/31/21 Last Taken Unknown] acetaminophen 325 mg tablet 650 mg PO Q4H PRN 08/31/21 [History Confirmed 08/31/21 Last Taken Unknown] levothyroxine 50 mcg capsule (Tirosint) 50 mcg PO DAILY 08/31/21 [History Confirmed 08/31/21 Last Taken Unknown] pantoprazole 40 mg granules delayed-release for susp in packet 40 mg PO BID #60 ea 09/01/21 [Rx Last Taken Unknown] sucralfate 100 mg/mL oral suspension 1 gm PO ACHS #90 ml 09/02/21 [Rx Last Taken Unknown] COURSE Hospital Course Hospital course: History of present illness: Mr. Meyers is a 81 year old M Patient presents the ED from [facility] for black tarry stools guaiac positive and pale. Patient was for left parietal stroke on 08/11. He was also found to have pneumonia and was treated for both bacterial and Covid pneumonia. He was finally discharged on the due to isolation precautions from [facility] to assisted facility. And then today brought in because of weakness and his thought he was Pale and bleeding. Had another dark tarry stool in the ED. Hemoglobin 7.5 was 10.7 5 days ago. Will order blood transfusion and given the recent stroke will give 2 units to help with perfusion. Patient was on aspirin when he was admitted to [place] and Plavix was added given the stroke. Discussed case with Dr. Queen after EGD findings of multiple ulcers. We will send out fasting gastrin for Chuckie Juárez syndrome work-up. Wait 2-weeks for antiplatelet restart. Will only restart plavix. 2 No reported bleeding overnight. No new complaints. Electrolyte imbalance on chemistry. Hemoglobin stable but not as high as would expect after 2 units of blood. 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 Suárez -gastrin lab pending Discharge diagnosis: Peptic ulcer disease with GI bleed blood loss anemia Secondary discharge diagnosis: Recent stroke recent pneumonia with Covid dementia depression anxiety diabetes CAD obstructive sleep apnea hypothyroidism GERD Time Spent with Patient Time attestation: Total time spent providing and/or coordinating discharge services: Time spent: Greater than 30 minutes EXAM Constitutional Vitals: Temp Pulse Resp BP Pulse Ox 97.4 F 65 20 123/60 95 09/01/21 07:21 09/01/21 07:21 09/01/21 07:21 09/01/21 07:21 09/01/21 07:21 Discharge Data Data Completed and Pending Labs on day of discharge: Labs from last 24 hours 09/01/21 09/01/21 09/01/21 05:39 05:39 05:39 WBC 12.1 H RBC 2.84 L Hgb 8.5 L Hct 27.2 L MCV 95.8 MCH 29.9 MCHC 31.3 RDW 16.5 H Plt Count 146 MPV 10.4 Neut % (Auto) 77.9 Lymph % (Auto) 14.6 L [place] % (Auto) 6.1 Eos % (Auto) 1.2 Baso % (Auto) 0.2 Lymph # (Auto) 1.77 [place] # (Auto) 0.74 Eos # (Auto) 0.15 Baso # (Auto) 0.03 Absolute Neutrophils 9.44 H VBG Lactic Acid Sodium 146 H Potassium 4.2 Chloride 118 H Carbon Dioxide 21 L Anion Gap 7.0 L BUN 43 H Creatinine 0.7 GFR Calculation 88 Glucose 168 H Uric Acid 3.4 Calcium 7.7 L Phosphorus 2.3 L Magnesium 2.1 Total Bilirubin 0.5 Direct Bilirubin < 0.2 GGT 9 AST 12 ALT 19 Alkaline Phosphatase 57 Lactate Dehydrogenase 215 Total Protein 4.8 L Albumin 2.4 L Globulin 2.4 Albumin/Globulin Ratio 1.0 Triglycerides 154 H Gastrin Pending 08/31/21 08/31/21 08/31/21 12:31 09:51 09:51 WBC 21.2 H RBC 2.46 L Hgb 7.4 L Hct 24.1 L MCV 98.0 MCH 30.1 MCHC 30.7 L RDW 17.0 H Plt Count 296 MPV 11.0 H Neut % (Auto) 83.7 H Lymph % (Auto) 10.3 L [place] % (Auto) 5.6 Eos % (Auto) 0.1 Baso % (Auto) 0.3 Lymph # (Auto) 2.19 [place] # (Auto) 1.19 H Eos # (Auto) 0.02 Baso # (Auto) 0.07 Absolute Neutrophils 17.71 H VBG Lactic Acid 2.3 H Sodium 143 Potassium 4.3 Chloride 108 Carbon Dioxide 21 L Anion Gap 14.0 BUN 59 H Creatinine 1.1 GFR Calculation 62 Glucose 308 H Uric Acid Calcium 8.4 L Phosphorus Magnesium Total Bilirubin 0.4 Direct Bilirubin GGT AST 17 ALT 29 Alkaline Phosphatase 65 Lactate Dehydrogenase Total Protein 5.6 L Albumin 2.9 L Globulin 2.7 Albumin/Globulin Ratio 1.1 Triglycerides Gastrin Discharge Plan Patient/Caregiver Discharge Instructions Activity: increase activity as tolerated Diet: Consistent Carbohydrate Activity Restrictions/Additional Instructions: Wait 10 days to restart Plavix. Prescriptions: New sucralfate 100 mg/mL Suspension 1 gm PO ACHS Qty: 90 0RF Continued potassium chloride [Klor-Con 10] 10 mEq tablet extended release 10 meq PO QDAY 0RF (DME) FreeStyle Lite Strips Strip See Dose Instructions .ROUTE .MEDSUPPLY Qty: 100 11RF Rx Instructions: test blood sugar three times daily glimepiride 2 mg tablet 2 mg PO DAILY Qty: 90 4RF furosemide 40 mg tablet 40 mg PO QAM Qty: 90 4RF clopidogrel 75 mg tablet 75 mg PO DAILY Qty: 90 4RF allopurinol 300 mg tablet 150 mg PO QDAY Qty: 90 4RF (DME) Cpap Machine and supplies Qty: 1 0RF Rx Instructions: As directed bupropion HCl 150 mg tablet sustained-release 12 hr 150 mg PO DAILY Qty: 30 0RF Lantus Solostar U-100 Insulin 100 unit/mL (3 mL) insulin pen 50 unit SUB-Q .COMPLEX Qty: 15 4RF Hold Instructions: Doctor's Order Rx Instructions: 50 units subcut ; sertraline 50 mg tablet 50 mg PO QDAY Qty: 90 1RF lutein 10 mg tablet 10 mg PO QDAY 0RF memantine 5 mg tablet 5 mg PO BID 0RF (DME) blood-glucose meter [FreeStyle [place] Lite] kit See Dose Instructions .ROUTE .MEDSUPPLY Qty: 1 0RF Rx Instructions: As directed (DME) pen needle, diabetic [BD Ultra-Fine Glenny Pen Needle] 32 gauge x 5/32" needle See Dose Instructions .ROUTE .MEDSUPPLY Qty: 10 0RF Rx Instructions: As directed fluticasone propionate [Flonase Allergy Relief] 50 mcg/actuation spray,suspension 2 spray INTRANASAL QDAY Qty: 16 0RF Rx Instructions: administer into each nostril lidocaine 5 % adhesive patch,medicated 1 patch topical QDAY PRN (Reason: pain) Qty: 15 0RF Rx Instructions: Apply to most painful area for up to 12 hrs/day. loperamide [Imodium A-D] 2 mg tablet 2 mg PO Q4H PRN (Reason: loose stool) Qty: 30 0RF Rx Instructions: administer after each loose stool until symptoms controlled; do not exceed 8 mg per 24 hrs metoprolol tartrate 25 mg tablet 25 mg PO DAILY Qty: 90 4RF (DME) 4 wheel walker with seat See Rx Instructions .Route .MEDSUPPLY Qty: 1 0RF Rx Instructions: As directed donepezil 10 mg tablet 10 mg PO BID 0RF Myrbetriq 25 mg tablet extended release 24 hr 25 mg PO QDAY Qty: 90 4RF multivitamin 1 EACH tablet 1 each PO DAILY 0RF ropinirole 0.5 MG tablet 0.5 mg PO BID 0RF cholecalciferol (vitamin D3) 1,000 UNIT capsule 1,000 unit PO DAILY 0RF coenzyme Q10 50 MG tablet,chewable 300 mg PO DAILY 0RF levothyroxine [Tirosint] 50 mcg capsule 50 mcg PO DAILY 0RF Rx Instructions: TAKE 1 CAPSULE DAILY acetaminophen 325 mg Tablet 650 mg PO Q4H PRN (Reason: pain/fever) 0RF nitrofurantoin macrocrystal 100 mg capsule 100 mg PO ONCE Qty: 1 0RF Changed pantoprazole 40 MG packet 40 mg PO BID Qty: 60 0RF Rx Instructions: Take twice daily for 30 days then once daily thereafter. Discontinued aspirin 81 MG tablet,chewable 81 mg PO DAILY 0RF Follow Up Plan Follow up with: Antonio Martin MD [Primary Care Provider] - Vivek Suárez MD [Physician] - Patient Disposition: Home Health Service Prognosis: Undetermined Overall status at discharge: patient is progressing back to baseline Discharge Orders: Discharge Order (Routine); Ordered 09/02/21 Ordered By: Germain Sanchez [facility] VTE Deep Vein Thrombosis/Pulmonary Embolism Present on Admission: No
[2021-09-01] MEDS: MEMANTINE 10 MG TABLET PO SCH ×2 (10:33→20:06)
[2021-09-01] MEDS: ALLOPURINOL 300 MG TABLET PO SCH (10:34)
[2021-09-01] MEDS: INSULIN LISPRO 1 UNIT/0.01 ML UNIT SQ SCH ×3 (11:40→20:48)
[2021-09-01 17:07] LABS: POC Blood Urea Nitrogen 33 mg/dL (6-20); POC CO2 24 mmol/L (22-30); POC Calcium, Ionized 1.25 mmEq/L (1.16-1.32); POC Chloride 113 mEq/L (96-108); POC Creatinine 0.9 mg/dL (0.6-1.2); POC Glucose, Random 169 mg/dL (70-105); POC Hematocrit 25 % (41-55); POC Potassium 3.7 mEql/L (3.3-5.1); POC Sodium 148 mEq/L (133-145)
[2021-09-01] MEDS: DEXTROSE 5% IN WATER 1,000 ML IV SCH (18:00)
[2021-09-01 18:01] LABS: Hematocrit 26.4 % (40.1-51.0); Hemoglobin 8.4 g/dL (13.7-17.5)
[2021-09-01] MEDS: PANTOPRAZOLE 40 MG PACKET PO SCH (20:05)
[2021-09-01 23:17] LABS: POC Blood Urea Nitrogen 25 mg/dL (6-20); POC CO2 22 mmol/L (22-30); POC Calcium, Ionized 1.18 mmEq/L (1.16-1.32); POC Chloride 110 mEq/L (96-108); POC Creatinine 0.7 mg/dL (0.6-1.2); POC Glucose, Random 189 mg/dL (70-105); POC Hematocrit 21 % (41-55); POC Potassium 3.5 mEql/L (3.3-5.1); POC Sodium 143 mEq/L (133-145)
[2021-09-01] MEDS ORDERED: SUCRALFATE 1 GM/10 ML ORAL.SUSP PO ONE (23:33)
[2021-09-02] MEDS ORDERED: 0.9 % SODIUM CHLORIDE 250 ML IV SCH (01:15)
[2021-09-02] MEDS: DEXTROSE 5% IN WATER 1,000 ML IV SCH ×2 (02:10→11:44)
[2021-09-02] MEDS: 0.9 % SODIUM CHLORIDE 10 ML SYRINGE IV SCH ×3 (06:01→21:10)
[2021-09-02 06:47] LABS: POC Calcium, Ionized 1.22 mmEq/L (1.16-1.32); POC Creatinine 0.6 mg/dL (0.6-1.2); POC Potassium 3.5 mEql/L (3.3-5.1)
[2021-09-02] MEDS: LEVOTHYROXINE 50 MCG TABLET PO SCH (07:31)
[2021-09-02] MEDS: PANTOPRAZOLE 40 MG PACKET PO SCH ×2 (07:31→17:14)
[2021-09-02] MEDS: INSULIN LISPRO 1 UNIT/0.01 ML UNIT SQ SCH ×4 (07:32→21:06)
--- NOTE | 2021-09-02 07:52 | Internal Med Progress Note ---
SUBJECTIVE Subjective Patient information: Note initiated : 09/02/21 at 7:47 am Service Date, if different from initiated Date: [] Patient: Abdoulaye Meyers a 81 y/o M admitted on 08/31/21 for Gi bleed. Chief Complaint: [] Interval history: History of present illness: Mr. Meyers is a 81 year old M Patient presents the ED from [facility] facility for black tarry stools guaiac positive and pale. Patient was for left parietal stroke on 08/11. He was also found to have pneumonia and was treated for both bacterial and Covid pneumonia. He was finally discharged on the due to isolation precautions from [facility] to [facility]. And then today brought in because of weakness and his thought he was Pale and bleeding. Had another dark tarry stool in the ED. Hemoglobin 7.5 was 10.7 5 days ago. Will order blood transfusion and given the recent stroke will give 2 units to help with perfusion. Patient was on aspirin when he was admitted to [place] and Plavix was added given the stroke. Discussed case with Dr. Queen after EGD findings of multiple ulcers. We will send out fasting gastrin for Chuckie Juárez syndrome work-up. Wait 2-weeks for antiplatelet restart. Will only restart plavix. 09/01 No reported bleeding overnight. No new complaints. Electrolyte imbalance on chemistry. Hemoglobin stable but not as high as would expect after 2 units of blood. 2/ Stable hemoglobin, seems to be doing well. Constitutional Vitals: Vital Signs Temp Pulse Resp BP Pulse Ox 97.5 F 55 L 18 106/56 92 09/02/21 07:16 09/02/21 07:16 09/02/21 07:16 09/02/21 07:16 09/02/21 07:16 Period Temp Pulse Resp BP Sys/Kerr Pulse Ox Last 24 Hr 97.3 F-97.8 F 44-72 - 106-173/53-75 92-96 Intake and Output 09/01/21 09/02/21 09/02/21 21:59 05:59 13:59 Intake Total 100 2450 Balance 100 2450 Weight 80.15 kg Intake & Output: Intake & Output 09/01/21 09/02/21 09/02/21 21:59 05:59 13:59 Intake Total 100 2450 Balance 100 2450 Weight 80.15 kg Intake: IV 100 1000 Dextrose 5% in Water 1,000 ml @ 1000 125 mls/hr IV .Q8H EMELINA Rx#: [id number] Protonix 80 mg In Sodium 100 Chloride 0.9% 100 ml @ 8 MG/HR 10 mls/hr IV Q10H EMELINA Rx#: [id number] Oral 0 800 Blood Product 650 Other: Meal Lunch Percent of Meal Consumed 0% Urine Appearance Clear [place] Clear Urine Color Bright Yellow [place] Bright Yellow Stool Size Small Stool Color Black Stool Consistency Loose # of times incontinent of 1 Bowels Exam: General: Alert, Awake, No acute Distress Eyes/N/T: EOMI, Head/Neck: neck supple, CV: RRR, 3/6 SM, Pulm: Clear b/l, no wheezing/rhonchi/rales Abd: soft, nontender, +BS x4 Ext: no clubbing/cyanosis/edema Neuro: Alert, no focal deficits, moves all extremities, Skin: warm/dry, pale OBJ DATA Labs CBC & Chem 7: 09/02/21 06:36 09/02/21 06:37 Labs: Abnormal Lab Results 09/02/21 09/01/21 09/01/21 06:37 23:04 23:04 WBC RBC Hgb 7.7 L Hct POC Hct 29 L 21 L* MCHC RDW MPV Neut % (Auto) Lymph % (Auto) [place] # (Auto) Absolute Neutrophils VBG Lactic Acid POC Sodium Sodium POC Chloride 110 H Chloride Carbon Dioxide Anion Gap POC BUN 23 H 25 H BUN Glucose POC Glucose 135 H 189 H Calcium Phosphorus Total Protein Albumin Triglycerides 09/01/21 09/01/21 09/01/21 16:53 16:53 05:39 WBC RBC Hgb 8.4 L Hct 26.4 L POC Hct 25 L MCHC RDW MPV Neut % (Auto) Lymph % (Auto) [place] # (Auto) Absolute Neutrophils VBG Lactic Acid POC Sodium 148 H Sodium 146 H POC Chloride 113 H Chloride 118 H Carbon Dioxide 21 L Anion Gap 7.0 L POC BUN 33 H BUN 43 H Glucose 168 H POC Glucose 169 H Calcium 7.7 L Phosphorus 2.3 L Total Protein 4.8 L Albumin 2.4 L Triglycerides 154 H 09/01/21 08/31/21 08/31/21 05:39 12:31 09:51 WBC 12.1 H RBC 2.84 L Hgb 8.5 L Hct 27.2 L POC Hct MCHC RDW 16.5 H MPV Neut % (Auto) Lymph % (Auto) 14.6 L [place] # (Auto) Absolute Neutrophils 9.44 H VBG Lactic Acid 2.3 H POC Sodium Sodium POC Chloride Chloride Carbon Dioxide 21 L Anion Gap POC BUN BUN 59 H Glucose 308 H POC Glucose Calcium 8.4 L Phosphorus Total Protein 5.6 L Albumin 2.9 L Triglycerides 08/31/21 09:51 WBC 21.2 H RBC 2.46 L Hgb 7.4 L Hct 24.1 L POC Hct MCHC 30.7 L RDW 17.0 H MPV 11.0 H Neut % (Auto) 83.7 H Lymph % (Auto) 10.3 L [place] # (Auto) 1.19 H Absolute Neutrophils 17.71 H VBG Lactic Acid POC Sodium Sodium POC Chloride Chloride Carbon Dioxide Anion Gap POC BUN BUN Glucose POC Glucose Calcium Phosphorus Total Protein Albumin Triglycerides Meds: Medications Acetaminophen (Acetaminophen 325 Mg Tablet) 650 mg PO Q6HP PRN; Protocol PRN Reason: Per Pain Protocol/Fever > 101 Albuterol/Ipratropium (Ipratropium/Albuterol 3 Ml Ampul.Neb) 3 ml NEB Q4HP PRN PRN Reason: Shortness Of Breath Allopurinol (Allopurinol 300 Mg Tablet) 150 mg PO QDAY [facility] Last Admin: 09/01/21 10:34 Dose: 150 mg Documented by: Dextrose (Dextrose 50% 50 Ml Vial) 0 ml IV UD PRN PRN Reason: Hypoglycemia Diagnostic Test (Pha) (Accu-Chek 1 Each Strip) 1 each FS ACHS [facility] Last Admin: 09/02/21 07:32 Dose: 1 each Documented by: Donepezil HCl (Donepezil 10 Mg Tablet) 10 mg PO BID [facility] Last Admin: 09/01/21 20:06 Dose: 10 mg Documented by: Glucose (Dextrose 31 Gm Oral.Susp) 15 gm PO PRN PRN PRN Reason: Hypoglycemia Potassium Chloride 40 meq/ (Dextrose) 520 mls @ 130 mls/hr IV UD PRN PRN Reason: Potassium < 3 Magnesium Sulfate (Magnesium Sulfate) 2 gm in 50 mls @ 50 mls/hr IV UD PRN PRN Reason: Magnesium </= 1.6 Dextrose (Dextrose 5% In Water) 1,000 mls @ 125 mls/hr IV .Q8H [facility] Last Admin: 09/02/21 02:10 Dose: Not Given Documented by: Sodium Chloride (Sodium Chloride 0.9%) 250 mls @ 20 mls/hr IV .[id number] [facility] Stop: 09/02/21 13:44 Last Admin: 09/02/21 02:04 Dose: 20 mls/hr Documented by: Insulin Human Lispro (Insulin Lispro 1 Unit/0.01 Ml Unit) 0 unit SQ ACHS [facility]; Protocol Last Admin: 09/02/21 07:32 Dose: Not Given Documented by: Levothyroxine Sodium (Levothyroxine 50 Mcg Tablet) 50 mcg PO QAMAC [facility] Last Admin: 09/02/21 07:31 Dose: 50 mcg Documented by: Loperamide HCl (Loperamide 2 Mg Capsule) 2 mg PO Q4HP PRN PRN Reason: Diarrhea Memantine (Memantine 10 Mg Tablet) 5 mg PO BID [facility] Last Admin: 09/01/21 20:06 Dose: 5 mg Documented by: Metoprolol Succinate (Metoprolol Succinate 25 Mg Tab.Xl.24h) 6.25 mg PO DAILY [facility] Last Admin: 09/01/21 09:54 Dose: 6.25 mg Documented by: Metoprolol Tartrate (Metoprolol Tartrate 5 Mg/5 Ml Vial) 5 mg IV Q2HP PRN PRN Reason: Tachyarrhythmias HR>110 Ondansetron HCl (Ondansetron 4 Mg/2 Ml Vial) 4 mg IV Q4HP PRN PRN Reason: Nausea And Vomiting Pantoprazole Sodium (Pantoprazole 40 Mg Packet) 40 mg PO BIDAC [facility] Last Admin: 09/02/21 07:31 Dose: 40 mg Documented by: Polyethylene Glycol (Polyethylene Glycol 3350 17 Gm Packet) 17 gm PO DAILYP PRN PRN Reason: Constipation Potassium Chloride (Potassium Chloride 20 Meq Tablet) 40 meq PO UD PRN PRN Reason: Potssium is 3-3.5 Potassium Chloride (Potassium Chloride 20 Meq Tablet) 40 meq PO UD PRN PRN Reason: Potassium < 3 Ropinirole HCl (Ropinirole 0.25 Mg Tablet) 0.5 mg PO BID [facility] Last Admin: 09/01/21 20:06 Dose: 0.5 mg Documented by: Sertraline HCl (Sertraline 50 Mg Tablet) 50 mg PO QDAY [facility] Last Admin: 09/01/21 09:54 Dose: 50 mg Documented by: Sodium Chloride (0.9 % Sodium Chloride 10 Ml Syringe) 10 ml IV Q8 [facility] Last Admin: 09/02/21 06:01 Dose: 10 ml Documented by: A/P Narrative A/P Narrative: A: *GI bleed, appears to be upper: 2/2 severe PUD *Acute blood loss anemia: -s/p 2PRBC(08/31) & 2prbc (09/01) *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 Queen s/p endoscopy, f/u with GI outpt -Blood transfusion prn, monitor H&H -Protonix bid, carafate -full liquid diet, advance as tolerated -asa/plavix held, will only restart Plavix and wait 2-weeks per Dr. Suárez -d/c toprol for tino and low BP, Continue other home medications -IS -PT/OT -ppx: SCD Time Spent With Patient Time: Total time spent is greater than 50% in coordination of care (as documented) at patient's floor/unit and/or counseling patient: QUALITY VTE Deep Vein Thrombosis/Pulmonary Embolism Present on Admission: No
[2021-09-02 08:05] LABS: Basophils # (Auto) 0.02 K/mcL (0.00-0.30); Basophils % (Auto) 0.2 % (0.0-2.0); Eosinophils # (Auto) 0.37 K/mcL (0.00-0.70); Eosinophils % (Auto) 3.8 % (0.0-7.0); Hematocrit 31.7 % (40.1-51.0); Hemoglobin 10.2 g/dL (13.7-17.5); Lymphocytes % (Auto) 13.4 % (15.5-49.0); Mean Cell Volume 93.8 fL (80.0-100.0); Mean Corpuscular HGB Conc 32.2 g/dL (31.0-36.0); Mean Platelet Volume 10.2 fL (7.4-10.4); Monocytes # (Auto) 0.62 K/mcL (0.10-0.90); Monocytes % (Auto) 6.4 % (1.0-12.0); Neutrophils % (Auto) 76.2 % (38.0-78.0); Platelet Count 108 K/mcL (140-440); RBC 3.38 M/mcL (4.63-6.08); Red Cell Distribution Width 15.8 % (11.5-14.5); WBC 9.7 K/mcL (4.5-11.0)
[2021-09-02 08:33] LABS: ALT/SGPT 19 U/L (<40); AST/SGOT 16 U/L (<40); Albumin 2.4 gm/dL (3.2-5.2); Albumin/Globulin Ratio 1.1 (1.0-2.3); Alkaline Phosphatase 56 U/L (39-117); Bilirubin,Direct 0.2 mg/dL (<0.3); Bilirubin,Total 0.9 mg/dL (0.1-1.0); Blood Urea Nitrogen 22 mg/dL (8-23); Calcium 7.7 mg/dL (8.6-10.4); Carbon Dioxide 22 mmol/L (22-30); Chloride 112 mmol/L (96-108); Globulin 2.1 gm/dL (2.2-3.7); Glomerular Filtration Rate 93; Glucose 134 mg/dL (70-105); Lactate Dehydrogenase 194 U/L (135-225); Phosphorous 2.1 mg/dL (2.5-4.5); Triglycerides 132 mg/dL (<150); Uric Acid 2.6 mg/dL (2.5-8.0)
[2021-09-02] MEDS: SERTRALINE 50 MG TABLET PO SCH (08:41)
[2021-09-02] MEDS: MEMANTINE 10 MG TABLET PO SCH ×2 (08:42→21:07)
[2021-09-02] MEDS: DONEPEZIL 10 MG TABLET PO SCH ×2 (08:42→21:07)
[2021-09-02] MEDS: ALLOPURINOL 300 MG TABLET PO SCH (08:42)
[2021-09-02] MEDS: rOPINIRole 0.25 MG TABLET PO SCH ×2 (08:43→21:07)
[2021-09-02] MEDS: SUCRALFATE 1 GM/10 ML ORAL.SUSP PO SCH ×4 (08:46→21:06)
[2021-09-03] MEDS: 0.9 % SODIUM CHLORIDE 10 ML SYRINGE IV SCH ×2 (05:03→12:11)
[2021-09-03] MEDS: INSULIN LISPRO 1 UNIT/0.01 ML UNIT SQ SCH ×2 (07:35→11:25)
[2021-09-03] MEDS: SUCRALFATE 1 GM/10 ML ORAL.SUSP PO SCH ×2 (07:35→11:25)
[2021-09-03] MEDS: PANTOPRAZOLE 40 MG PACKET PO SCH (07:35)
[2021-09-03] MEDS: LEVOTHYROXINE 50 MCG TABLET PO SCH (07:35)
[2021-09-03] MEDS: ALLOPURINOL 300 MG TABLET PO SCH (08:46)
[2021-09-03] MEDS: DONEPEZIL 10 MG TABLET PO SCH (08:46)
[2021-09-03] MEDS: MEMANTINE 10 MG TABLET PO SCH (08:47)
[2021-09-03] MEDS: rOPINIRole 0.25 MG TABLET PO SCH (08:47)
[2021-09-03] MEDS: SERTRALINE 50 MG TABLET PO SCH (08:47)
--- NOTE | 2021-09-03 10:24 | EGD Procedure Note ---
EGD Procedure Notes Procedure Information Patient information: Note initiated : 09/03/21 at 10:20 am Service Date: 08/31/21 Patient: Abdoulaye Meyers 81 y/o M admitted on 08/31/21 for Gi bleed. Pre-op diagnosis general: Anemia. Melena. Post-Op Diagnosis general: Schatzki's ring. Gastritis. Duodenal ulcers, bulbar and post bulbar. Procedure: EGD with Guided Dilation Procedure Narrative: The procedure, alternatives and risks were discussed with the patient and the patient's questions were answered. With endoscopist-administered intravenous sedation, the Olympus video endoscope was introduced into the esophagus. The esophagus, stomach, and duodenum were examined sequentially. At the esophagogastric junction, there was a Schatzki's ring narrowing the lumen significantly. Gastritis was seen in the proximal stomach body; this was biopsied. Seven bulbar and postbulbar duodenal ulcers were seen. The gastric mucosa, antrum, pyloric ring, and duodenum appeared normal. Antral biopsy was taken for [id number] test. A guidewire was inserted into the scope. The scope was then withdrawn, leaving the guidewire in place. The esophagus was dilated with an [place]i bougie 54 Cypriot. Assessment: Schatzki's ring. Gastritis. Duodenal ulcers, bulbar and post bulbar. He should have a fasting serum gastrin to rule out Chuckie-Juárez syndrome. High dose PPI therapy should be started and he should avoid all NSAIDS and aspirin.
[2021-09-03 10:45] LABS: Hematocrit 29.6 % (40.1-51.0); Hemoglobin 9.7 g/dL (13.7-17.5)
== END 2021-09-03 13:30 | DRG 378 ==
LOC: ED 09:33 → MEDSUR 09:33 → OBSVTOIN 14:58 → MEDSUR 14:59
PROVIDERS: ADMIT Internal Medicine; ATTEND Internal Medicine